=== PATIENT | male | born 1945 | race Two or more races ===

== ENCOUNTER 2017-10-25 08:24 | Inpatient (IN) | payer MEDICARE, MEDICAID ==
[~2017-10-25] VITALS: Ht 172.7 cm; Wt 74.8 kg
[2017-10-25 09:17] VITALS: BP 147/88
--- NOTE | 2017-10-25 09:32 | NUR ---
MS RN: ADMITTING NOTE PT ADMITTED FOR REPAIR OF INCARCERATED RIGHT INGUINAL HERNIA WITH MESH BY MD LY. CONSENT SIGNED AND PLACED IN CHART. PT A/OX4. NO DISTRESS NOTED. NO SOB NOTED. NO PAIN NOTED. SKIN INTACT. ON ROOM AIR SATING AT 98%. VS STABLE. BP 148/88, PULSE 61, RR 18, TEMP 97.9. HX PROVIDED BY PT. HX OF STENT PLACEMENT IN FEMORAL ARTERY, KIDNYE STONES, AND A SMOKER. BRP. NO ASSISTANCE NEEDED. MRSA NARES PENDING. ALL LABS AND EKG CXR ARE IN CHART. IV WILL BE STARTED. NO KNOWN ALLERGIES. NPO SINCE 10/24/17 AT 2100. RESTING COMFORTABLY IN BED. CALL LIGHT WITHIN REACH. CHECK LIST DONE AND PLACED IN CHART.
[2017-10-25] MEDS ORDERED: ASPI-1169 PO (09:35)
[2017-10-25] MEDS ORDERED: IBUP-1955 PO (09:35)
[2017-10-25] MEDS ORDERED: ROSU10TA PO (09:35)
[2017-10-25] MEDS ORDERED: TAMS0.4C34 PO (09:35)
[2017-10-25] MEDS ORDERED: MYRBETRIQ PO (09:35)
[2017-10-25 11:22] VITALS: BP 147/88
[2017-10-25] MEDS ORDERED: BUPIVACAINE 0.25% 75 MG/30 ML VIAL ONE (11:57)
[2017-10-25] MEDS ORDERED: LIDOCAINE 1%-EPI 1:100,000 20 ML VIAL IJ ONE (12:30)
[2017-10-25] MEDS ORDERED: ACETAMINOPHEN 325 MG TABLET PO ONE (14:00)
[2017-10-25] MEDS ORDERED: GABAPENTIN 300 MG CAPSULE PO ONE (14:00)
[2017-10-25] MEDS ORDERED: IBUPROFEN 800 MG TABLET PO ONE (14:00)
[2017-10-25] MEDS ORDERED: IBUPROFEN 400 MG TABLET PO ONE (14:00)
--- NOTE | 2017-10-25 14:19 | NUR ---
PT RETURNED FROM SURGERY AWAKE AND ALERT. NO PAIN NOTED. NO SOB NOTED. ON ROOM AIR SATING AT 955. NO DISTRESS NOTED. PER MD LY ORDER TO PLACE ON CLEAR LIQUID DIET, D/C HOME TODAY WITH SELF CARE WHEN AWAKE AND ALERT. BP STABLE 138/88, PULSE 64, RR 18, TEMP 98.2. RESTING COMFORTABLY IN BED. CALL LIGHT WITHIN REACH.
--- NOTE | 2017-10-25 15:03 | NUR ---
MS RN: DISCHARGE NOTE PT D/C HOME WITH SELF CARE. CAME IN FOR DAY SURGERY FOR REPAIR OF INGLINEL HERNIA WITH MESH BY MD LY. PER MD LY TO D/C PT HOME WHEN AWAKE AND ALERT, ABLE TO VOID AND TOLERATES CLEAR LIQUIDS. ALL ORDERS CARRIED OUT. PT DRANK WATER AND TOLERATED CLEAR LIQUIDS WELL. VS STABLE 132/88, PULSE 62, RR 18, O2 95% ON ROOM AIR. NO PAIN NOTED. REFUSED PAIN MEDS SCHEDULED FOR ONE TIME ONLY. ALL RISKS AND BENEFITS EXPLAINED. GAVE EDUCATION ABOUT HERNIA CARE AND SURGERY. IV ON R FA #[id number] REMOVED. SITE CLEAR. NO REDNESS OR BLEEDING NOTED. AMBULATED WITH OUT ASSIST TO RESTROOM. ABLE TO VOID. PRESCRIPTIONS GIVEN ORDERED. LEFT VIA PRIVATE CAR WITH DAUGHTER SAAD. ALL BELONGINGS ACCOUNTED FOR.
== END 2017-10-25 15:00 | disposition home or self-care (01) | DRG 352 ==
LOC: DS 08:24 → MED 08:26
PROVIDERS: ADMIT Surgery; ATTEND Surgery
PROC: 0YU50JZ Supplement Right Inguinal Region with Synthetic Substitute, Open Approach (ICD-10-PCS; principal; 2017-10-25 11:57)
DX: K40.31 Unilateral inguinal hernia, with obstruction, without gangrene, recurrent (principal); D17.9 Benign lipomatous neoplasm, unspecified; F17.200 Nicotine dependence, unspecified, uncomplicated; Z87.442 Personal history of urinary calculi; Z98.890 Other specified postprocedural states
CPT/HCPCS: 87081-TC; 88302-TC; 88305-TC; J3490; Z7610